=== PATIENT | female | born 1990 | race Hispanic/Latino ===

== ENCOUNTER 2024-05-16 17:01 | Emergency (ER) | payer SELFPAY ==
[~2024-05-16] VITALS: Ht 162.6 cm; Wt 119.7 kg
[2024-05-16 19:15] VITALS: BP 158/88; PULSE 92; RESP 14; O2SAT 99
[2024-05-16] MEDS: METHOCARBAMOL 500 MG TABLET PO STA (19:27)
== END 2024-05-16 19:50 | disposition home or self-care (01) ==
LOC: EDH 17:01
DX: S63.501A Unspecified sprain of right wrist, initial encounter (principal); E11.9 Type 2 diabetes mellitus without complications; I10 Essential (primary) hypertension; Z98.890 Other specified postprocedural states; X58.XXXA Exposure to other specified factors, initial encounter; Y93.89 Activity, other specified; Y92.89 Other specified places as the place of occurrence of the external cause; Y99.8 Other external cause status
CPT/HCPCS: 29125; 73030; 73090; 73100; 73130